=== PATIENT | female | born 1980 | race Caucasian/White ===

== ENCOUNTER 2021-03-20 08:18 | Inpatient (IN) | payer BC, SELFPAY ==
--- NOTE | ~2021-03-20 | XR_ITS ---
EXAMINATION: XR chest 2V DATE: 03/20/2021 08:54 INDICATION: Right upper extremity pain and swelling TECHNIQUE: PA and lateral views of the chest are obtained. COMPARISON: 05/14/2013 FINDINGS: The lungs are free of acute opacities. There is no pleural effusion or pneumothorax. The ca rdiomediastinal silhouette is normal. The visualized bones and soft tissues are unremarkable. IMPRESSION: 1. No acute cardiopulmonary abnormality. Reviewed, dictated and finalized at location A. TIC ROLLER
--- NOTE | ~2021-03-20 | US_ITS ---
US abdomen limited INDICATION: Epigastric pain PROCEDURE: Realtime right upper abdominal ultrasound. COMPARISON: No prior studies for comparison. FINDINGS: The pancreas is normal without focal mass or pancreatic ductal dilation. Liver echotexture is normal without focal mass or intrahepatic biliary dilatation. There is normal directional flow i n the portal vein. Gallbladder is contracted. There is a 3 mm gallbladder polyp. Common bile duct measures 2 mm. No so nographic Rowe's sign. IMPRESSION: 1: Gallbladder polyp measuring 3 mm. Reviewed, dictated and finalized at location B. OR BIOINFORMATICS SPECIALIST
[2021-03-20 08:26] VITALS: BP 140/96; PULSE 110; RESP 18; TEMP 37.2; O2SAT 100
--- NOTE | 2021-03-20 08:39 | ECG_ITS ---
Measurements Intervals [place] Rate: 97 P: 77 MN: 142 QRS: 62 QRSD: 105 T: 25 QT: 355 QTc: 452 Interpretive Statements SINUS RHYTHM POSSIBLE LEFT ATRIAL ENLARGEMENT DELAYED PRECORDIAL R/S TRANSITION BORDERLINE ST-T WAVE ABNORMALITY- INFERIOR LEADS BASELINE ARTIFACT- V4-V6 BORDERLINE ECG Electronically Signed On 03-20-2021 9:30:54 INDUSTRIAL DESIGN INTERN by Ha Atkins D.O.
[2021-03-20 09:07] LABS: Basophils Percent Auto 0.6 % (0.2-1.2); Eosinophils Absolute Auto 0.3 K/mm3 (0-0.3); Eosinophils Percent Auto 4.1 % (0-4.4); Hematocrit 41.5 % (37.0-47.0); Hemoglobin 13.9 g/dL (12.0-15.0); Immature Granulocyte Absolute 0.01 K/mm3 (0.00-0.031); Immature Granulocyte Percent A 0.2 % (0-0.5); Lymphocytes Percent Auto 23.7 % (18.3-44.2); Mean Corpuscular HGB Conc 33.5 g/dl (32-36); Mean Corpuscular Hemoglobin 29.1 pg (26-34); Mean Corpuscular Volume 86.8 fl (80-100); Mean Platelet Volume 10.3 fl (7.4-10.4); Monocytes Absolute Auto 0.5 K/mm3 (0.1-0.6); Monocytes Percent Auto 7.7 % (2.6-8.5); Neutrophils Percent Auto 63.7 % (45.5-73.1); Platelet Count Result 262 k/mm3 (150-375); Red Blood Count 4.78 M/mm3 (4.2-5.4); Red Cell Distribution Width 14.3 % (11.5-14.5); White Blood Count 6.3 K/mm3 (4.5-10.0)
[2021-03-20 09:20] LABS: D Dimer 0.66 ug/mL (<0.48)
[2021-03-20 09:31] LABS: Troponin I < 0.012 ng/mL (0.000-0.034)
[2021-03-20 09:49] LABS: Alanine Aminotransferase 79 U/L (4-35); Albumin Level 4.4 g/dL (3.5-5.1); Alkaline Phosphatase 77 U/L (38-126); Anion Gap 8 mmol/L (8-16); Aspartate Amino Transferase 291 U/L (14-36); Bilirubin,Total 0.7 mg/dL (0.2-1.3); Blood Urea Nitrogen 12 mg/dL (7-17); Carbon Dioxide 24 mmol/L (22-30); Chloride 104 mmol/L (98-107); Estimated CRCL calculation 77 ml/min; Estimated Glomerular Filt Rate > 60; Glucose 97 mg/dL (65-110); Potassium 4.1 mmol/L (3.4-5.0); Sodium 136 mmol/L (137-145)
[2021-03-20 10:06] LABS: Creatine Kinase 10527 U/L (30-135)
--- NOTE | 2021-03-20 10:47 | ED.UPPEXIN ---
HPI - Extremity Injury (Upper) General Chief Complaint: Extremity Injury, Upper Stated Complaint: bilateral arm pain Time Seen by Provider: 03/20/21 08:38 Source: patient Mode of arrival: ambulatory Limitations: no limitations History of Present Illness HPI narrative: Patient started working out of her upper extremity in the last couple to 3 days, subsequently developed gradual increase of pain, swelling of the upper extremity mainly on the right side with tightness feeling. Patient denies shortness of breath or chest pain. Related Data Allergies Allergy/AdvReac Type Severity Reaction Status Date / Time Sulfa (Sulfonamide Allergy Mild RASH Verified 05/26/16 05:06 Antibiotics) Review of Systems Review of Systems: CONSTITUTIONAL: Denies fever, chills, or sweats. EYES: Denies visual changes, redness, or discharge. ENT: Denies rhinorrhea, congestion, sore throat, or otalgia. CARDIOVASCULAR: Denies chest pain, palpitations, or edema. RESPIRATORY: Denies cough or dyspnea. GASTROINTESTINAL: Denies abdominal pain, nausea, vomiting, or diarrhea. GENITOURINARY: Denies dysuria or hematuria. SKIN: Denies rash or itching. MUSCULOSKELETAL: Denies back pain, joint pain, or myalgia. NEUROLOGIC: Denies headache, numbness, or weakness. PSYCHIATRIC: Denies anxiety or depression. Exam Narrative: General appearance: Well-developed, well-nourished Skin: Normal color Head: Normocephalic, nontraumatic Eyes: Clear conjunctiva ENT: Oropharynx normal, ears normal, nose normal Neck: Supple, nontender Chest and respiratory: Airway patent, no respiratory distress, no accessory muscle use Heart: Regular rate/rhythm Abdomen: Soft, nontender, no organomegaly, quiet bowel sounds Vascular: Normal peripheral pulses, normal capillary refill. Musculoskeletal: Diffuse tenderness of the arm bilaterally mainly the right 1 with slight swelling. Neurologic: Alert and oriented ?3, F[employer] NORMAL[employer]ER is normal as tested, no gross motor deficit Course Course Emergency Course: Stable Vital Signs Vital signs: Vital Signs Temperature 37.2 C 03/20/21 08:26 Pulse Rate 110 H 03/20/21 08:26 Respiratory Rate 18 03/20/21 08:26 Blood Pressure 140/96 H 03/20/21 08:26 Pulse Oximetry 100 03/20/21 08:26 Temperature 37.2 C 03/20/21 08:26 Pulse Rate 110 H 03/20/21 08:26 Respiratory Rate 18 03/20/21 08:26 Blood Pressure 140/96 H 03/20/21 08:26 Pulse Oximetry 100 03/20/21 08:26 MDM - Extremity Injury (Upper) MDM Narrative Medical decision making narrative: Strain/sprain of the upper extremity muscles is my concern. Versus rhabdo. Differential Diagnosis Differential diagnosis: Likely other (Muscular sprain/strain, rhabdo) Lab Data Result diagrams: 03/20/21 09:00 03/20/21 09:00 Labs: Lab Results 03/20/21 03/20/21 03/20/21 Range/Units 09:00 09:00 09:00 WBC 6.3 (4.5-10.0) K/mm3 RBC 4.78 (4.2-5.4) M/mm3 Hgb 13.9 (12.0-15.0) g/dL Hct 41.5 (37.0-47.0) % MCV 86.8 (80-100) fl MCH 29.1 (26-34) pg MCHC 33.5 (32-36) g/dl RDW 14.3 (11.5-14.5) % Plt Count 262 (150-375) k/mm3 MPV 10.3 (7.4-10.4) fl Immature Gran % (Auto) 0.2 (0-0.5) % Neut % (Auto) 63.7 (45.5-73.1) % Lymph % (Auto) 23.7 (18.3-44.2) % [place] % (Auto) 7.7 (2.6-8.5) % Eos % (Auto) 4.1 (0-4.4) % Baso % (Auto) 0.6 (0.2-1.2) % Lymph # (Auto) 1.50 (0.9-3.2) K/mm3 [place] # (Auto) 0.5 (0.1-0.6) K/mm3 Eos # (Auto) 0.3 (0-0.3) K/mm3 Baso # (Auto) 0.0 (0.0-0.1) K/mm3 Abs Immat Gran (auto) 0.01 (0.00-0.031) K/mm3 Absolute Neuts (auto) 4.0 (1.3-6.7) K/mm3 Absolute Nucleated RBC 0.0
[2021-03-20] MEDS: SODIUM CHLORIDE 0.9% IV 1,000 ML 999 ML IV CONT (11:00)
[2021-03-20 12:20] VITALS: BP 137/84; PULSE 81; RESP 14; O2SAT 98
[2021-03-20 13:24] VITALS: BMI 25.7
[2021-03-20] MEDS: SODIUM CHLORIDE 0.9% IV 1,000 ML 200 ML IV CONT ×3 (13:40→23:21)
[2021-03-20 14:00] VITALS: BP 133/79; PULSE 82; RESP 16; TEMP 37.1; O2SAT 98
--- NOTE | 2021-03-20 14:15 | PM.IMHP ---
H&P: HPI History of Present Illness Date/Time: 03/20/21 14:15 Chief Complaint: Arm pain. Narrative: This is a healthy 41-year-old female who presented to the emergency department earlier today via private vehicle from home for evaluation of arm pain. She is very active and exercises regularly though she did take a bit of a break from lifting weights for about 1 month's time. Last week she started a new workout program and this week alone she has done 3 sessions targeting her upper body and arms. She has been lifting dumbbells between 8 and 10 lb and although she has been sore, she was certainly not over exerting herself. On she noticed that her arms were swollen and she began experiencing discomfort in her biceps with extension. She has been taking ibuprofen with some benefit. When resting she really has no discomfort. CK done on arrival to the emergency department today was 10,527 and she is being admitted in this setting for further treatment of rhabdomyolysis. She has never had similar symptoms in the past and denies recent illness, injury, drug use, new medications, and personal or family history of muscle enzyme deficiencies or autoimmune diseases. Review of Systems Review of Systems: Twelve systems were reviewed. No fever, chills, or sweats. Complains of a headache at this time. No recent cold or flu symptoms. She denies exertional chest pain and shortness of breath. She has not noticed a decrease in urine output or a change in the color of her urine. No numbness in the arms. She has not had nausea or vomiting. No history of hepatitis. Except as documented, all other systems were reviewed and are negative. [facility] Past Medical History Medical History Personal history of asthma Childhood asthma, no recent issues. Surgical History Surgical History No history of previous surgery Family History Family History (Updated 03/20/21 @ 20:00 by Sue Garcia PA-C) Other No pertinent family history Social History Social History (Updated 03/20/21 @ 20:01 by Sue Garcia PA-C) Social History: Surrogate decision maker: Leo Moore, spouse. Code status: Full code. Smoking status: Never smoker Alcohol intake: current Drinks per week: 1 Substance use: never Additional living arrangements comments: The patient lives with her and their children in [place]. 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 Spiritual care concerns: Yes (Yazidism) Meds Home Medications and Allergies Home Medications Medication Instructions Recorded Confirmed Type acetaminophen 325 mg PO PRN PRN 03/20/21 03/20/21 History cetirizine [Zyrtec] 10 mg PO DAILY 03/20/21 03/20/21 History elderberry fruit [Elderberry] 200 mg PO DAILY 03/20/21 03/20/21 History ibuprofen 400 mg PO PRN PRN 03/20/21 03/20/21 History multivitamin [A To Z Multivitamin] 1 tablet PO DAILY 03/20/21 03/20/21 History Allergies Allergy/AdvReac Type Severity Reaction Status Date / Time Sulfa (Sulfonamide Allergy Mild RASH Verified 05/26/16 05:06 Antibiotics) Vital Signs Vital Signs - 24 hr 03/20/21 08:26 03/20/21 12:20 Temperature 98.9 F Pulse Rate 110 H 81 Respiratory Rate 18 14 Blood Pressure 140/96 H 137/84 Pulse Oximetry 100 98 Exam Narrative: General: Well-developed female sitting up in bed in no acute distress. Weight: 67.9 kg. BMI: 25.7. HEENT: PERRL, EOMI. Sclerae anicteric. Oral mucosa moist. Oropharynx clear. Neck: Supple. Respiratory: Lungs are clear to auscultation bilaterally. Cardiovascular: Regular rate and rhythm with S1-S2. No murmur, rub, or gallop. Gastrointestinal: Abdomen is soft, nontender, and nondistended with positive bowel sounds. Skin: Warm and dry. No rash or lesions on limited exam. Extremities: No cyanosis, clubbing, or edema of the legs
[2021-03-20] MEDS: traMADol HCL (*CRX) 50 MG TABLET PO (15:27)
[2021-03-20 15:52] LABS: Magnesium 1.8 mg/dL (1.6-2.3)
[2021-03-20 16:37] LABS: Creatine Kinase 9591 U/L (30-135)
[2021-03-20] MEDS: ONDANSETRON INJ 4 MG/2 ML VIAL IV PUSH (16:44)
[2021-03-20] MEDS: ACETAMINOPHEN 325 MG TABLET 650 MG PO (19:58)
[2021-03-20 20:02] VITALS: BP 123/72; PULSE 67; RESP 16; TEMP 36.6; O2SAT 99
[2021-03-20 22:00] LABS: Add Urine Microscopic? NO; Appearance Urine Clear (Clear); Bilirubin Urine Negative (Negative); Blood Urine Negative (Negative); Color Urine Straw (Yellow); Glucose Urine UA Negative (Negative); Ketones Urine Negative (Negative); Leukocyte Esterase Ur Negative LEU/UL (Negative); Nitrate Urine Negative (Negative); Protein Urine Negative (Negative); Specific Grav Ur 1.006 (1.001-1.035); Urobilinogen Urine Negative mg/dL (<2.0)
[2021-03-21 03:19] VITALS: BP 115/70; PULSE 81; RESP 17; TEMP 36.7; O2SAT 98
[2021-03-21] MEDS: ACETAMINOPHEN 325 MG TABLET 650 MG PO ×2 (03:21→16:19)
[2021-03-21] MEDS: SODIUM CHLORIDE 0.9% IV 1,000 ML 200 ML IV CONT ×4 (04:24→19:25)
[2021-03-21 06:27] LABS: Alanine Aminotransferase 74 U/L (4-35); Albumin Level 3.2 g/dL (3.5-5.1); Alkaline Phosphatase 56 U/L (38-126); Anion Gap 2 mmol/L (8-16); Aspartate Amino Transferase 223 U/L (14-36); Bilirubin,Total 0.5 mg/dL (0.2-1.3); Blood Urea Nitrogen 4 mg/dL (7-17); Calcium 7.9 mg/dL (8.4-10.2); Carbon Dioxide 24 mmol/L (22-30); Chloride 108 mmol/L (98-107); Estimated CRCL calculation 77 ml/min; Estimated Glomerular Filt Rate > 60; Glucose 95 mg/dL (65-110); Magnesium 1.8 mg/dL (1.6-2.3); Potassium 4.1 mmol/L (3.4-5.0); Sodium 134 mmol/L (137-145)
[2021-03-21 07:23] LABS: Creatine Kinase 7544 U/L (30-135)
[2021-03-21] MEDS: LORATADINE 10 MG TABLET PO (07:57)
--- NOTE | 2021-03-21 10:45 | PCCCNOTE ---
On 03/21/21, the student, [Hermila Wells], provided care and completed [facility] documentation on this patient. I have reviewed the student's documentation and agree with the findings.
[2021-03-21 11:13] LABS: Creatine Kinase 8577 U/L (30-135)
--- NOTE | 2021-03-21 11:17 | PM.IMPN ---
Progress Note: A&P Assessment and Plan (1) Rhabdomyolysis: Qualifiers: Encounter type: subsequent encounter Rhabdomyolysis type: traumatic Qualified Code(s): T79.6XXD - Traumatic ischemia of muscle, subsequent encounter Code(s): M62.82 - Rhabdomyolysis Status: Acute Assessment and Plan: [place] to be due to exertional rhabdomyolysis from new weightlifting regimen; the patient did 3 sessions of upper arms this week alone. Continue with aggressive [place] [address] at presentation. Improved to 7500 today. Continue to trend CK. Renal function is adequate. (2) Elevated LFTs: Code(s): R79.89 - Other specified abnormal findings of blood chemistry Status: Acute Assessment and Plan: Related to rhabdomyolysis. Slight improvement today. Anticipate resolution with treatment of rhabdomyolysis. If no improvement/further worsening, will pursue further evaluation. Subjective Date/time seen: 03/21/21 11:17 Interval history: Date of service: 03/21/2021 Sera Moore is a 41-year-old female with a history of asthma who is seen in follow-up for rhabdomyolysis after initiating an you exercise program which included upper body and arm weightlifting. She developed swelling in her upper extremities and pain with extension of the arms. At the time of my encounter, she is feeling better. She is able to extend her arms fully with little to no discomfort. Still has some tightness with extension. She thinks that her swelling has improved, though notes that she still feels somewhat swollen compared to her usual. She denies any color changes in her extremities, denies any exquisite pain, and no numbness or tingling. She has been urinating frequently since receiving IV fluids. She notes that her urine is yellow in color. She never had dark urine. She endorses general mild body aching. She has had a headache that has begun to improve. Last night she had an episode of nausea with no vomiting. At this time she denies nausea or vomiting. She denies fever or chills. Her appetite is good. No shortness of breath, cough, chest pain, or palpitations. Review of Systems Review of Systems: All systems reviewed & are unremarkable except as noted in HPI and below Exam Narrative: Ms. Moore is a well-nourished, well-appearing 41-year-old female who is lying supine in bed. She appears comfortable and is in NARD. Neuro: awake, alert and oriented x4, speech clear, no focal neuro deficits noted HEENMT: normocephalic, atraumatic, EOMI, sclerae anicteric, moist oral mucosa Neck: supple, no lymphadenopathy Respiratory: clear to auscultation bilaterally, nonlabored breathing Cardio: regular rate, regular rhythm with S1-S2 Abdomen: nondistended, normoactive bowel sounds, soft, nontender to palpation Extremities: Full passive range of motion of upper extremities. Bilateral radial pulses 2+. Able to move all extremities. No edema upper or lower extremities. DP pulses 2+ bilaterally Skin: no rashes or lesions, warm and dry Psych: appropriate mood and affect, judgment and insight intact Objective Data Vital Signs Vital Signs: Vital Signs - 24 hr 03/20/21 12:20 03/20/21 14:00 03/20/21 20:02 Temperature 98.8 F 97.8 F Pulse Rate 81 82 67 Respiratory Rate 14 16 16 Blood Pressure 137/84 133/79 123/72 Pulse Oximetry 98 98 99 03/21/21 03:19 Temperature 98.1 F Pulse Rate 81 Respiratory Rate 17 Blood Pressure 115/70 Pulse Oximetry 98 Intake/Output Intake/Output: Intake & Output 03/18/21 03/19/21 03/20/21 03/21/21 23:59 23:59 23:59 23:59 Intake Total 3640 3320 Output Total 1250 1700 Balance 2390 1620 Meds/Results Medications: Active Medications Generic Name Dose Route Start Last Admin Trade Name Freq PRN Reason Stop Dose Admin Acetaminophen 650 mg 03/20/21 14:23 03/21/21 03:21 Acetaminophen 325 Mg Tablet PO 650 mg Q6H PRN Administration
[2021-03-21 13:52] VITALS: BP 132/88; PULSE 91; RESP 16; TEMP 37; O2SAT 100
[2021-03-21 21:04] VITALS: BP 126/73; PULSE 72; RESP 18; TEMP 36.7; O2SAT 100
[2021-03-22] MEDS: SODIUM CHLORIDE 0.9% IV 1,000 ML 200 ML IV CONT ×5 (00:27→20:42)
[2021-03-22 05:14] VITALS: BP 119/72; PULSE 78; RESP 16; TEMP 36.9; O2SAT 98
[2021-03-22 06:01] LABS: Alanine Aminotransferase 81 U/L (4-35); Albumin Level 3.1 g/dL (3.5-5.1); Alkaline Phosphatase 56 U/L (38-126); Anion Gap 2 mmol/L (8-16); Aspartate Amino Transferase 187 U/L (14-36); Bilirubin,Total 0.6 mg/dL (0.2-1.3); Blood Urea Nitrogen 5 mg/dL (7-17); Carbon Dioxide 24 mmol/L (22-30); Chloride 109 mmol/L (98-107); Estimated CRCL calculation 89 ml/min; Estimated Glomerular Filt Rate > 60; Glucose 94 mg/dL (65-110); Potassium 3.8 mmol/L (3.4-5.0); Sodium 135 mmol/L (137-145)
[2021-03-22 06:06] LABS: Creatine Kinase 5435 U/L (30-135)
[2021-03-22] MEDS: LORATADINE 10 MG TABLET PO (08:56)
[2021-03-22] MEDS: ACETAMINOPHEN 325 MG TABLET 650 MG PO (08:59)
--- NOTE | 2021-03-22 10:51 | PC.NURSE ---
On 03/22/21, the student, [ Minerva Valderrama], provided care and completed [facility] documentation on this patient. I have reviewed the student's documentation and agree with the findings.
[2021-03-22 14:00] VITALS: BP 125/78; PULSE 71; RESP 16; TEMP 36.3; O2SAT 100
--- NOTE | 2021-03-22 15:11 | PM.IMPN ---
Progress Note: A&P Assessment and Plan (1) Rhabdomyolysis: Qualifiers: Encounter type: subsequent encounter Rhabdomyolysis type: traumatic Qualified Code(s): T79.6XXD - Traumatic ischemia of muscle, subsequent encounter Code(s): M62.82 - Rhabdomyolysis Status: Acute Assessment and Plan: [place] to be due to exertional rhabdomyolysis from new weightlifting regimen. Continue with aggressive IV fluid rehydration. [place] [address] at presentation. Improved to 5400 today. Continue to trend CK. Renal function is adequate. (2) Elevated LFTs: Code(s): R79.89 - Other specified abnormal findings of blood chemistry Status: Acute Assessment and Plan: Related to rhabdomyolysis. AST trending down, ALT remaining stable. Anticipate resolution with treatment of rhabdomyolysis. If no improvement/further worsening, will pursue further evaluation. Subjective Date/time seen: 03/22/21 15:11 Interval history: Date of service: 03/21/2021 Sera Moore is a 41-year-old female with a history of asthma who is seen in follow-up for rhabdomyolysis after initiating a new exercise program which included upper body and arm weightlifting. She developed swelling in her upper extremities and pain with extension of the arms. She is feeling a lot better today. She no longer endorses pain in her upper extremities. She is able to extend her arms without discomfort. She still feels just a little bit swollen in her upper extremities. She has been urinating frequently with the fluids and notes that her urine is yellow in color. Early this morning she had some abdominal discomfort that she thought was related to gas. This has since resolved. She is tolerating her diet. She reports regular bowel movements. Denies nausea or vomiting. No fever or chills. Denies any pain of her lower extremities. No back pain. She has no additional concerns at this time. Review of Systems Review of Systems: All systems reviewed & are unremarkable except as noted in HPI and below Exam Narrative: Ms. Moore is a well-nourished, well-appearing 41-year-old female who is lying supine in bed. She appears comfortable and is in NARD. Neuro: awake, alert and oriented x4, speech clear, no focal neuro deficits noted HEENMT: normocephalic, atraumatic, EOMI, sclerae anicteric, moist oral mucosa Neck: supple, no lymphadenopathy Respiratory: clear to auscultation bilaterally, nonlabored breathing Cardio: regular rate, regular rhythm with S1-S2 Abdomen: nondistended, normoactive bowel sounds, soft, nontender to palpation Extremities: Able to move all extremities. No edema upper or lower extremities. Nontender to palpation. Skin: no rashes or lesions, warm and dry Psych: appropriate mood and affect, judgment and insight intact Objective Data Vital Signs Vital Signs: Vital Signs - 24 hr 03/21/21 21:04 03/22/21 05:14 03/22/21 14:00 Temperature 98.1 F 98.4 F 97.3 F L Pulse Rate 72 78 71 Respiratory Rate 18 16 16 Blood Pressure 126/73 119/72 125/78 Pulse Oximetry 100 98 100 Intake/Output Intake/Output: Intake & Output 03/19/21 03/20/21 03/21/21 03/22/21 23:59 23:59 23:59 23:59 Intake Total 3640 7090 5520 Output Total 1250 6350 5200 Balance 2390 740 320 Meds/Results Medications: Active Medications Generic Name Dose Route Start Last Admin Trade Name Freq PRN Reason Stop Dose Admin Acetaminophen 650 mg 03/20/21 14:23 03/22/21 08:59 Acetaminophen 325 Mg Tablet PO 650 mg Q6H PRN Administration Mild Pain (1-3) or Fever Sodium Chloride 1,000 mls @ 200 mls/hr 03/20/21 10:45 03/22/21 10:39 Normal Saline Iv IV CONT 200 mls/hr .Q5H DARIANA Administration Loratadine 10 mg 03/21/21 09:00 03/22/21 08:56 Loratadine 10 Mg Tablet PO 04/20/21 08:59 10 mg DAILY DARIANA Administration Morphine Sulfate 4 mg 03/20/21 10:42 Morphine Sulfate (*Crx) 4 Mg/Ml Inj IV PUSH Q4H PRN
[2021-03-22] MEDS: SIMETHICONE 80 MG TAB.CHEW PO (16:37)
[2021-03-22] MEDS: FAMOTIDINE 20 MG TABLET PO (20:42)
[2021-03-22 20:57] VITALS: BP 130/82; PULSE 80; RESP 18; TEMP 36.4; O2SAT 100
[2021-03-23] MEDS: SODIUM CHLORIDE 0.9% IV 1,000 ML 200 ML IV CONT ×5 (01:36→20:46)
[2021-03-23] MEDS: ACETAMINOPHEN 325 MG TABLET 650 MG PO (04:55)
[2021-03-23 05:43] VITALS: BP 123/74; PULSE 97; RESP 14; TEMP 36.5; O2SAT 100
[2021-03-23 05:58] LABS: Hematocrit 33.7 % (37.0-47.0); Hemoglobin 11.1 g/dL (12.0-15.0); Mean Corpuscular HGB Conc 32.9 g/dl (32-36); Mean Corpuscular Hemoglobin 28.3 pg (26-34); Mean Platelet Volume 10.8 fl (7.4-10.4); Platelet Count Result 209 k/mm3 (150-375); Red Blood Count 3.92 M/mm3 (4.2-5.4); White Blood Count 5.5 K/mm3 (4.5-10.0)
[2021-03-23 06:19] LABS: Alanine Aminotransferase 72 U/L (4-35); Albumin Level 3.2 g/dL (3.5-5.1); Alkaline Phosphatase 54 U/L (38-126); Anion Gap 5 mmol/L (8-16); Aspartate Amino Transferase 121 U/L (14-36); Bilirubin,Total 0.4 mg/dL (0.2-1.3); Blood Urea Nitrogen 4 mg/dL (7-17); Calcium 7.9 mg/dL (8.4-10.2); Carbon Dioxide 23 mmol/L (22-30); Chloride 107 mmol/L (98-107); Estimated CRCL calculation 89 ml/min; Estimated Glomerular Filt Rate > 60; Glucose 93 mg/dL (65-110); Potassium 3.6 mmol/L (3.4-5.0); Sodium 135 mmol/L (137-145)
[2021-03-23 06:57] LABS: Creatine Kinase 3094 U/L (30-135)
[2021-03-23] MEDS: LORATADINE 10 MG TABLET PO (08:16)
[2021-03-23] MEDS: FAMOTIDINE 20 MG TABLET PO ×2 (08:16→20:47)
--- NOTE | 2021-03-23 08:20 | PM.IMPN ---
Progress Note: A&P Assessment and Plan (1) Rhabdomyolysis: Qualifiers: Encounter type: subsequent encounter Rhabdomyolysis type: traumatic Qualified Code(s): T79.6XXD - Traumatic ischemia of muscle, subsequent encounter Code(s): M62.82 - Rhabdomyolysis Status: Acute Assessment and Plan: Probably from exertional rhabdomyolysis from new weightlifting regimen Continue with aggressive IV fluid rehydration 200ml/[place] [address] [place] presentation, continues to trend down and is 3094 today Continue to trend CK Renal function is adequate. BUN/Cr 4/0.60 (2) Elevated LFTs: Code(s): R79.89 - Other specified abnormal findings of blood chemistry Status: Acute Assessment and Plan: Related to rhabdomyolysis AST/ALT trending down AST/ALT 121/72 Anticipate resolution with treatment of rhabdomyolysis If no improvement/further worsening, will pursue further evaluation. With complaints of epigastric pain, get RUQ ultrasound to make sure that the liver is ok Time Spent With Patient Time with patient: 25 - 35 minutes Subjective Date/time seen: 03/23/21 08:20 Interval history: Date of service: 03/21/2021 Sera Moore is a 41-year-old female with a history of asthma who is seen in follow-up for rhabdomyolysis after initiating a new exercise program which included upper body and arm weightlifting. She developed swelling in her upper extremities and pain with extension of the arms. She is feeling a lot better today. She no longer endorses pain in her upper extremities. She is able to extend her arms without discomfort. She still feels just a little bit swollen in her upper extremities. She has been urinating frequently with the fluids and notes that her urine is yellow in color. Early this morning she had some abdominal discomfort that she thought was related to gas. This has since resolved. She is tolerating her diet. She reports regular bowel movements. Denies nausea or vomiting. No fever or chills. Denies any pain of her lower extremities. No back pain. She has no additional concerns at this time. Date/Time 03/23/21 0820 Patient is lying in bed. Patient stated that she was having epigastric pain that was new today. She did state that she was having bowel movements however they are smaller than normal. She also complained of a headache which she was drinking diet Coke trying to get rid of. She denies any issues with urinating. She is still having some achiness in her left elbow joint. Otherwise she is walking the bathroom and feels great. She denies chest pain, shortness of breath, nausea, vomiting, sweats, fevers, chills. She was concerned that this would be her last worked out episode however this workup required 3 days straight of 1 body area. Which probably is the reason why she is having these issues right now. Patient is also on a regular diet and she was wondering if she could have different food from home. Otherwise she has no additional concerns at this time. Review of Systems Review of Systems: All systems reviewed & are unremarkable except as noted in HPI and below Exam Const: General: cooperative, comfortable, no acute distress, well developed, alert, awake, Physically active and tired appearing Nutritional Appearance: well nourished Orientation/consciousness: oriented to person, oriented to place, oriented to time and patient oriented x3 Limitations: no limitations HENMT: Head: normal to inspection Ears: hearing grossly normal bilaterally General nose exam: Normal external nose present Mouth: Yes Normal oral and palatal mucosa present, Yes lip normal and Yes tongue normal Teeth and gingiva: abnormal tooth and associated gingiva and poor dentition Eyes: General: appearance normal, both eyes and all related structures Neck: Neck: normal visual inspection, full ROM, trachea midline and supple Chest: Chest palpation & inspection: normal inspection of
[2021-03-23 14:00] VITALS: BP 140/85; PULSE 82; RESP 16; TEMP 36.7; O2SAT 100
[2021-03-23] MEDS: ACETAMINOPHEN 500 MG TABLET 1000 MG PO (16:37)
[2021-03-23 22:00] VITALS: BP 119/73; PULSE 65; RESP 16; TEMP 36.6; O2SAT 99
[2021-03-24] MEDS: SODIUM CHLORIDE 0.9% IV 1,000 ML 200 ML IV CONT ×2 (03:04→08:56)
[2021-03-24 06:00] VITALS: BP 120/72; PULSE 65; RESP 14; TEMP 36.2; O2SAT 100
[2021-03-24 06:17] LABS: Basophils Absolute Auto 0.1 K/mm3 (0.0-0.1); Eosinophils Absolute Auto 0.3 K/mm3 (0-0.3); Eosinophils Percent Auto 5.2 % (0-4.4); Hematocrit 33.3 % (37.0-47.0); Hemoglobin 11.2 g/dL (12.0-15.0); Immature Granulocyte Absolute 0.02 K/mm3 (0.00-0.031); Immature Granulocyte Percent A 0.4 % (0-0.5); Lymphocytes Absolute Auto 1.51 K/mm3 (0.9-3.2); Lymphocytes Percent Auto 28.8 % (18.3-44.2); Mean Corpuscular HGB Conc 33.6 g/dl (32-36); Mean Corpuscular Hemoglobin 28.6 pg (26-34); Mean Corpuscular Volume 84.9 fl (80-100); Mean Platelet Volume 10.9 fl (7.4-10.4); Monocytes Absolute Auto 0.3 K/mm3 (0.1-0.6); Monocytes Percent Auto 6.5 % (2.6-8.5); Neutrophils Absolute Auto 3.1 K/mm3 (1.3-6.7); Neutrophils Percent Auto 58.1 % (45.5-73.1); Platelet Count Result 220 k/mm3 (150-375); Red Blood Count 3.92 M/mm3 (4.2-5.4); Red Cell Distribution Width 13.9 % (11.5-14.5); White Blood Count 5.2 K/mm3 (4.5-10.0)
[2021-03-24 06:40] LABS: Alanine Aminotransferase 69 U/L (4-35); Albumin Level 3.3 g/dL (3.5-5.1); Alkaline Phosphatase 55 U/L (38-126); Anion Gap 6 mmol/L (8-16); Aspartate Amino Transferase 87 U/L (14-36); Bilirubin,Total 0.4 mg/dL (0.2-1.3); Blood Urea Nitrogen 6 mg/dL (7-17); Calcium 8.1 mg/dL (8.4-10.2); Carbon Dioxide 22 mmol/L (22-30); Chloride 108 mmol/L (98-107); Estimated CRCL calculation 89 ml/min; Estimated Glomerular Filt Rate > 60; Glucose 89 mg/dL (65-110); Magnesium 1.7 mg/dL (1.6-2.3); Potassium 3.5 mmol/L (3.4-5.0); Sodium 136 mmol/L (137-145)
[2021-03-24 08:17] LABS: Creatine Kinase 1174 U/L (30-135)
[2021-03-24] MEDS: FAMOTIDINE 20 MG TABLET PO (08:55)
[2021-03-24] MEDS: LORATADINE 10 MG TABLET PO (08:55)
[2021-03-24] MEDS: ACETAMINOPHEN 500 MG TABLET 1000 MG PO (12:21)
[2021-03-24 12:36] LABS: Creatine Kinase 1106 U/L (30-135)
--- NOTE | 2021-03-24 13:37 | PM.DS ---
DS: Admitting Diagnosis Discharge Date 03/24/2021 Admitting Diagnosis Rhabdomyolysis DS: Discharge Diagnosis Discharge Diagnosis (1) Rhabdomyolysis: Qualifiers: Encounter type: subsequent encounter Rhabdomyolysis type: traumatic Qualified Code(s): T79.6XXD - Traumatic ischemia of muscle, subsequent encounter Code(s): M62.82 - Rhabdomyolysis Status: Acute Assessment and Plan: [place] to be due to exertional rhabdomyolysis from new weightlifting regimen. She was aggressively rehydrated with IV fluids. CK was 10,500 at presentation and decline to nearly 1000. Renal function remained stable. Discussed maintaining adequate hydration at home and exercise modifications. (2) Elevated LFTs: Code(s): R79.89 - Other specified abnormal findings of blood chemistry Status: Acute Assessment and Plan: Related to rhabdomyolysis with overall downward trend with improvement of rhabdomyolysis. Anticipate return to baseline. She would like to recheck in 1-2 weeks to ensure complete resolution. Orders for labs provided on discharge with results to PCP. (3) Gallbladder polyp: Code(s): K82.4 - Cholesterolosis of gallbladder Status: Acute Assessment and Plan: On 03/23/2021, she did complain of mild epigastric pain and in light of her elevated LFTs, a right upper quadrant ultrasound was performed. This demonstrated a contracted gallbladder which is likely due to fasting as well as a 3 mm gallbladder polyp. She was asymptomatic on subsequent exams. No issues tolerating her diet. She can follow-up with her PCP regarding this and may consider repeat ultrasound in 12 months. DS: Summary Hospital Course Hospital Course: Date of admission: 03/20/2021 Date of discharge: 03/24/2021 Sera Moore is a healthy 41-year-old female with a history of asthma who presented to the emergency department on 03/20/2021 with complaints painful swelling of her [place] extremities over the past 1-3 days after initiating a new upper body workout regimen with weightlifting 8-10 lb dumbbells. On presentation to the emergency department, she was mildly tachycardic with additional vital signs stable, CBC and BMP unremarkable, CK 10,527, troponin negative, AST 291, ALT 79, and alk-phos 77. She was admitted to the hospitalist service for further evaluation and management. Please see above for further details. She had symptomatic improvement with rehydration and CK improved. She was feeling much better and was eager for discharge home. Given her overall improvement, she was determined to no longer require inpatient care and was felt to be stable for discharge. We discussed worrisome signs and symptoms for which to return and she was educated on her medications. She was discharged in hemodynamically stable condition on 03/24/2021. Status at Discharge Overall status at discharge: patient is back to baseline Time Spent with Patient Time attestation: Total time spent providing and/or coordinating discharge services: 45 minutes Time spent: Greater than 30 minutes Exam Narrative: Ms. Moore is a well-nourished, well-appearing 41-year-old female who is lying supine in bed. She appears comfortable and is in NARD. Neuro: awake, alert and oriented x4, speech clear, no focal neuro deficits noted HEENMT: normocephalic, atraumatic, EOMI, sclerae anicteric, moist oral mucosa Neck: supple, no lymphadenopathy Respiratory: clear to auscultation bilaterally, nonlabored breathing Cardio: regular rate, regular rhythm with S1-S2 Abdomen: nondistended, normoactive bowel sounds, soft, nontender to palpation Extremities: Able to move all extremities. No edema upper or lower extremities. Nontender to palpation. Skin: no rashes or lesions, warm and dry Psych: appropriate mood and affect, judgment and insight intact DS: Data Data Completed and Pending Labs on day of discharge: Labs from last 24 hours
== END 2021-03-24 14:17 | disposition home or self-care (01) | DRG 566 ==
LOC: ANHED 10:55 → ANH2MED 11:24
PROVIDERS: Nurse Practitioner; Physician Assistant; Admitting Provider Family Medicine; Emergency Provider Emergency Medicine; PCP Family Medicine; Visit Provider Physician Assistant
DX: T79.6XXA Traumatic ischemia of muscle, initial encounter (principal); R79.89 Other specified abnormal findings of blood chemistry; K82.4 Cholesterolosis of gallbladder; X50.0XXA Overexertion from strenuous movement or load, initial encounter; X50.3XXA Overexertion from repetitive movements, initial encounter
CPT/HCPCS: 36415; 71046; 76705; 80053; 81003; 81025; 82550; 83735; 84443; 84484; 85025; 85027; 85380; 93005; 96361; 96365; 96375; 99285; A9270; G0378; J0131; J2405; J7030

== ENCOUNTER 2024-03-24 00:06 | Day surgery (SDC) | payer BC, SELFPAY ==
[2024-03-05 14:36] VITALS: BMI 27.4
[2024-03-24 08:19] VITALS: BP 125/84; PULSE 106; RESP 16; TEMP 36.4; O2SAT 100; BMI 27.5
[2024-03-24] MEDS: LACTATED RINGERS 1,000 ML 150 ML IV CONT (08:30)
--- NOTE | 2024-03-24 08:37 | WPDANESEPPF ---
Anes - Initial Pre Proc Eval Procedure: Operation Date: 03/24/24 09:00 Proposed Procedures p Screening Colonoscopy - Stephen Moe MD Date/Time: 03/24/24 08:37 Surgeon: Stephen Moe MD Pre Op Diagnosis: Neoplasm screening Patient Data Age: 44 Gender: F Height: 1.63 m Weight: 72.8 kg Last Vital Signs Temp 36.4 C L 03/24/24 08:19 Pulse 106 H 03/24/24 08:19 Resp 16 03/24/24 08:19 BP 125/84 03/24/24 08:19 Pulse Ox 100 03/24/24 08:19 O2 Del Method Room Air 03/24/24 08:19 Allergies Allergy/AdvReac Type Severity Reaction Status Date / Time Sulfa (Sulfonamide Allergy Mild RASH Verified 03/24/24 08:18 Antibiotics) Home Medications Medication Instructions Recorded Confirmed Type acetaminophen 325 mg tablet 325 mg PO PRN PRN Headache 03/20/21 03/24/24 History cetirizine 10 mg tablet (Zyrtec) 10 mg PO DAILY 03/20/21 03/24/24 History ibuprofen 200 mg tablet 400 mg PO PRN PRN Migraine Headache 03/20/21 03/24/24 History multivitamin 1 tablet PO DAILY 03/20/21 03/24/24 History cholecalciferol (vitamin D3) 125 125 mcg PO DAILY 03/05/24 03/24/24 History mcg (5,000 unit) tablet Patient hx anesthesia problems: none Family hx anesthesia problems: none Results Review: All pre-operative results and documents have been reviewed as part of the pre-operative evaluation. [facility] Past Medical History Medical History Personal history of asthma Childhood asthma, no recent issues. Surgical History Surgical History No history of previous surgery Family History Family History Other No pertinent family history Social History Social History Social History: Surrogate decision maker: Leo Moore, spouse. Code status: Full code. Smoking status: Never smoker Alcohol intake: current Drinks per week: 1 Alcohol use details: 1/month Substance use: never Living arrangements: with family Additional living arrangements comments: The patient lives with her and their children in [place]. 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 Spiritual care concerns: No Anes - Eval Final PreProcedure Day of Procedure 03/24/24 08:37 Patient weight: overweight Heart: regular rate and rhythm Lungs: clear to auscultation Airway: Mallampati scale class II Neurological: alert and oriented Last oral intake: >/= 8 hours ASA classification: II Emergent: no Anesthetic plan: proceed Anesthesia type and monitoring: general GIVS and standard monitoring Results Review: All pre-operative results and documents have been reviewed as part of the pre-operative evaluation. Informed Consent: The patient's anesthetic plan and its attendant risks and benefits were discussed with the patient/family/POA. Questions were solicited and answers provided to the satisfaction of the patient/family/POA.
--- NOTE | 2024-03-24 08:48 | P.HP_ITS ---
History of Present Illness History of Present Illness Consent: Risks, benefits, and alternatives have been discussed and questions answered. Patient agrees to proceed with procedure. Chief complaint: Neoplasm screening Narrative: Sera Moore is a 44 year old female here for first screening colonoscopy Review of Systems Review of Systems: All systems reviewed & are unremarkable except as noted in HPI and below PMFSH Past Medical History Medical History Personal history of asthma Childhood asthma, no recent issues. Surgical History Surgical History No history of previous surgery Family History Family History Other No pertinent family history Social History Social History Social History: Surrogate decision maker: Leo Moore, spouse. Code status: Full code. Smoking status: Never smoker Alcohol intake: current Drinks per week: 1 Alcohol use details: 1/month Substance use: never Living arrangements: with family Additional living arrangements comments: The patient lives with her and their children in [place]. 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 Spiritual care concerns: No Meds Home Medications and Allergies Home Medications Medication Instructions Recorded Confirmed Type acetaminophen 325 mg tablet 325 mg PO PRN PRN Headache 03/20/21 03/24/24 History cetirizine 10 mg tablet (Zyrtec) 10 mg PO DAILY 03/20/21 03/24/24 History ibuprofen 200 mg tablet 400 mg PO PRN PRN Migraine Headache 03/20/21 03/24/24 History multivitamin 1 tablet PO DAILY 03/20/21 03/24/24 History cholecalciferol (vitamin D3) 125 125 mcg PO DAILY 03/05/24 03/24/24 History mcg (5,000 unit) tablet Allergies Allergy/AdvReac Type Severity Reaction Status Date / Time Sulfa (Sulfonamide Allergy Mild RASH Verified 03/24/24 08:18 Antibiotics) Vital Signs Vital Signs - 24 hr 03/24/24 08:19 Temperature 97.5 F L Pulse Rate 106 H Respiratory Rate 16 Blood Pressure 125/84 Pulse Oximetry 100 Oxygen Delivery Room Air Exam Const: General: comfortable and no acute distress HENMT: Face/Nose/Sinus: Normal nares present Eyes: General: appearance normal, both eyes and all related structures Neck: Neck: no JVD Resp: Auscultation: clear to auscultation bilaterally Cardio: Rate: regular rate Rhythm: regular rhythm GI: Inspection: non-distended GI Palp: Yes Soft to palpation Skin: General skin exam: normal color Neuro: General: gait normal Speech: normal speech Extrem: General: normal to inspection Psych: Mental Status: mental status grossly normal Assessment and Plan Assessment and plan (1) Screening for colon cancer: Code(s): Z12.11 - Encounter for screening for malignant neoplasm of colon Status: Acute Assessment and Plan: colonoscopy
[2024-03-24 09:02] VITALS: BP 96/72; PULSE 90; RESP 22; O2SAT 99
[2024-03-24 09:12] VITALS: BP 119/84; PULSE 80; RESP 18; O2SAT 100
[2024-03-24 09:22] VITALS: BP 123/90; PULSE 76; RESP 19; O2SAT 100
[2024-03-24 17:03] LABS: BEDSIDEPREGUCG Negative (Negative)
== END 2024-03-24 09:33 | disposition home or self-care (01) ==
PROVIDERS: PCP Family Medicine; Referring Provider Nurse Practitioner; Visit Provider Internal Medicine Gastroenterology
PROC: 0DJD8ZZ Inspection of Lower Intestinal Tract, Via Natural or Artificial Opening Endoscopic (ICD-10-PCS; CPT 45378; principal; 2024-03-24 09:00)
DX: Z12.11 Encounter for screening for malignant neoplasm of colon (principal); J45.909 Unspecified asthma, uncomplicated; Z79.1 Long term (current) use of non-steroidal anti-inflammatories (NSAID)
CPT/HCPCS: 45378; J2003; J2704; J7120